=== PATIENT | female | born 1980 | race Caucasian/White ===

== ENCOUNTER 2019-01-24 17:39 | Emergency (ER) | payer BC, OTHER ==
--- NOTE | 2019-01-24 18:12 | ED Physician Documentation ---
PD HPI LOWER EXT INJURY - Stated complaint Stated Complaint: ANKLE INJURY - Chief complaint Chief Complaint: Ext Problem - History obtained from History obtained from: Patient - History of Present Illness PD HPI LOW EXT INJURY LOCATION: Left, Ankle Type of injury: Twist Where injury occurred: Home Timing - onset: How many hours ago (1) Worsened by: Moving, Palpating, Other (weight bearing) Associated symptoms: Swelling. No: Weakness, Numbness Similar symptoms before: Has not had sx before - Treatment prior to arrival Treatment prior to arrival: Ibuprophen 600 mg. - Additional information Additional information: The patient is a 38-year-old female who twisted her left ankle when she stepped into a hole in her garden about 1 hour prior to arrival. She denies any other injuries. She denies history of previous left ankle injury. Review of Systems Constitutional: denies: Fever Respiratory: denies: Dyspnea GI: denies: Nausea, Vomiting Skin: denies: Rash Musculoskeletal: reports: Joint pain (left ankle) Neurologic: denies: Focal weakness, Numbness PD PAST MEDICAL HISTORY - Past Medical History Past Medical History: Yes Endocrine/Autoimmune: None GI: GERD Psych: Anxiety - Past Surgical History Past Surgical History: No - Present Medications Home Medications: Ambulatory Orders Medication Instructions Recorded Confirmed Ranitidine HCl [Zantac] 150 mg PO BID 11/09/15 11/09/15 predniSONE [Deltasone] 40 mg PO DAILY 5 Days tablet 11/09/15 - Allergies Allergies/Adverse Reactions: Allergies Allergy/AdvReac Type Severity Reaction Status Date / Time No Known Drug Allergies Allergy Verified 01/24/19 17:59 - Social History Does the pt smoke?: No Smoking Status: Never smoker Does the pt drink ETOH?: No Does the pt have substance abuse?: No - Immunizations Immunizations are current?: Yes Immunizations: TDAP >10years/unknown PD ED PE NORMAL - Vitals Vital signs reviewed: Yes (Systolic hypertension.) - General General: Alert and oriented X 3, Well developed/nourished - HEENT HEENT: Atraumatic - Respiratory Respiratory: No respiratory distress - Derm Derm: No rash - Extremities Extremities: Other (There is swelling and tenderness to palpation at the anterior and inferior aspect of the left lateral malleolus. There is no tenderness at the posterior aspect of the lateral malleolus, at the medial malleolus, the fifth metatarsal base, or the proximal fibula. Distal neurovascular is intact.) - Neuro Neuro: Alert and oriented X 3, No motor deficit, No sensory deficit Results - Vitals Vitals: Vital Signs - 24 hr 01/24/19 17:57 Temperature 36 C L Heart Rate 85 Respiratory 16 Rate Blood Pressure 165/70 H O2 Saturation 99 Oxygen O2 Source Room air - Rads (name of study) left ankle Radiology: Prelim report reviewed, EMP read contemporaneously, See rad report (No acute bony abnormality identified.) PD MEDICAL DECISION MAKING - ED course Complexity details: reviewed results, re-evaluated patient, considered d ifferential, d/w patient, d/w family ED course: The patient's presentation is most consistent with acute ankle sprain. There is no evidence of fracture or dislocation seen on x-ray examination. Treatment in the emergency department included administration of ankle air splint. The patient has her own crutches. Ibuprofen, 800 mg, was administered orally. I discussed with her the expected course of injury, symptomatic treatment and outpatient follow-up, as well as potentially worrisome signs or symptoms that should prompt reevaluation in the emergency department. Departure - Departure Disposition: 01 Home, Self Care Clinical Impression: Left ankle sprain Qualifiers: Encounter type: initial encounter Involved ligament of ankle: anterior talofibular ligament Qualified Code(s): S93.492A - Sprain of other ligament of left ankle, initial encounter Condition: Stable Instructions: ED Sprain Ankle W X Ray Follow-Up: Samir French MD [Provider Admit Priv/Credential] - Comments: Keep your injured leg elevated as much of the time as possible. Apply ice pack to the injured area intermittently for the next 3 days. You can use ibuprofen, up to 800 mg 3 times daily for its anti-inflammatory effect. Let pain be your guide to activity level. Follow up with your primary physician within 2 weeks if not starting to improve. Call to schedule a follow-up appointment. Return to the emergency department if you develop markedly increasing pain, or otherwise worsening symptoms. Forms: Activity restrictions
--- NOTE | 2019-01-24 19:13 | XRAY Report ---
Reason: left ankle injury Procedure Date: 01/24/2019 Accession Number: [id number] / [id number] Procedure: XR - Ankle 3 View LT CPT Code: FULL RESULT: EXAM: LEFT ANKLE RADIOGRAPHY EXAM DATE: 01/24/2019 06:42 PM. CLINICAL HISTORY: Fall. Left ankle injury. COMPARISON: None. TECHNIQUE: 3 views. FINDINGS: Bones: No traumatic or destructive bone abnormalities. Posterior calcaneal enthesophyte noted. Joints: Normal. No effusion. No subluxations. The ankle mortise is normally aligned. Soft Tissues: Unremarkable. IMPRESSION: No acute bony abnormality identified. RADIA
[2019-01-24 19:22] VITALS: BP 152/91
== END 2019-01-24 19:10 | disposition home or self-care (01) ==
LOC: ED 17:39
DX: S93.492A Sprain of other ligament of left ankle, initial encounter (principal); X50.9XXA Other and unspecified overexertion or strenuous movements or postures, initial encounter; Y93.89 Activity, other specified; Y92.007 Garden or yard of unspecified non-institutional (private) residence as the place of occurrence of the external cause
CPT/HCPCS: 99282; 99283

== ENCOUNTER 2021-06-09 11:26 | Emergency (ER) | payer BC ==
--- NOTE | 2021-06-09 12:10 | ED Physician Documentation ---
History of Present Illness - Stated complaint Stated Complaint: C+ - Chief complaint Chief Complaint: General - Additonal information Additional information: 41-year-old female presents the emergency department for evaluation of cough congestion feeling of a racing heart and shortness of air as well as back pain in the setting of recently diagnosed COVID-19 infection. She is unvaccinated and had recently traveled to [place] with her . He is also COVID-19 positive but is vaccinated. Patient began having symptoms about 3 days ago. She confirmed her positivity last night. She states that she felt like she was doing okay and wonders if stress or worry got the best of her because she began feeling anxious and short of air this morning. She denies any history of hypertension, diabetes, asthma or COPD. She is a non-smoker. Review of Systems Constitutional: denies: Fever, Chills Eyes: reports: Reviewed and negative Ears: reports: Reviewed and negative Nose: reports: Rhinorrhea / runny nose, Congestion Throat: reports: Reviewed and negative Respiratory: reports: Dyspnea, Cough. denies: Hemoptysis, Wheezing GI: denies: Abdominal Pain, Nausea, Vomiting : denies: Dysuria, Frequency, Hesitancy Skin: denies: Rash, Lesions Musculoskeletal: reports: Reviewed and negative Neurologic: reports: Reviewed and negative Psychiatric: reports: Reviewed and negative PD PAST MEDICAL HISTORY - Past Medical History Past Medical History: Yes Endocrine/Autoimmune: None GI: GERD Psych: Anxiety - Past Surgical History Past Surgical History: No - Present Medications Home Medications: Ambulatory Orders Medication Instructions Recorded Confirmed predniSONE [Deltasone] 40 mg PO DAILY 5 Days tablet 11/09/15 raNITIdine HCl [Zantac] 150 mg PO BID 11/09/15 11/09/15 - Allergies Allergies/Adverse Reactions: Allergies Allergy/AdvReac Type Severity Reaction Status Date / Time No Known Drug Allergies Allergy Verified 06/09/21 11:44 - Social History Does the pt smoke?: No Smoking Status: Never smoker Does the pt drink ETOH?: No Does the pt have substance abuse?: No - Immunizations Immunizations are current?: Yes Immunizations: TDAP >10years/unknown PD ED PE NORMAL - General General: Alert and oriented X 3, No acute distress - HEENT HEENT: PERRL - Neck Neck: Supple, no meningeal sign - Cardiac Cardiac: RRR, No murmur - Respiratory Respiratory: Clear bilaterally - Abdomen Abdomen: Normal bowel sounds, Soft, Non tender, Non distended - Back Back: No CVA TTP, No spinal TTP - Derm Derm: Normal color, Warm and dry, No rash - Extremities Extremities: No deformity - Neuro Neuro: Alert and oriented X 3, endodontist 2-12 intact Eye Opening: Spontaneous Motor: Localizes to Pain Results - Vitals Vitals: Vital Signs - 24 hr 06/09/21 11:39 Temperature 36.7 C Heart Rate 95 Respiratory 14 Rate Blood Pressure 115/86 H O2 Saturation 100 Oxygen O2 Source Room air - Labs Labs: Laboratory Tests 06/09/21 06/09/21 12:22 12:22 WBC 2.9 L RBC 4.48 Hgb 9.0 L Hct 31.5 L MCV 70.3 L MCH 20.1 L MCHC 28.6 L RDW 17.4 H Plt Count 223 MPV 8.9 Neut # (Auto) 1.9 Lymph # (Auto) 0.4 L Victoria # (Auto) 0.5 Eos # (Auto) 0.0 Baso # (Auto) 0.0 Absolute Nucleated RBC 0.00 Nucleated RBC % 0.0 Manual Slide Review Indicated Platelet Estimate NORMAL (130-450,000) Platelet Morphology NORMAL APPEARANCE RBC Morph Micro Appear 1+ HYPOCHROMASIA Sodium 138 Potassium 3.5 Chloride 104 Carbon Dioxide 25 Anion Gap 9.0 BUN 19 Creatinine 0.9 Estimated GFR (MDRD) 69 L Glucose 141 H Calcium 8.5 Total Bilirubin 0.5 AST 33 ALT 31 Alkaline Phosphatase 48 Total Protein 7.1 Albumin 3.9 Globulin 3.2 Albumin/Globulin Ratio 1.2 Lipase 24 - Rads (name of study) CXR Radiology: Final report received (No acute cardiopulmonary process) PD MEDICAL DECISION MAKING - ED course Complexity details: reviewed results, re-evaluated patient, d/w patient, d/w family ED course: 41-year-old female who is COVID-19 positive and has had symptoms for the last 3 days presents the ER for cough congestion shortness of air and right-sided back pain. She would like Regeneron monoclonal antibody and does meet the FDA requirements. She does not need to be admitted to the hospital for her COVID-19 infection. She has not hypoxemic on room air. Her cardiopulmonary auscultation is unremarkable. Her vital signs are essentially normal. Patient is evaluated after her Regeneron infusion and reports that she is feeling better and less anxious. We discussed the unremarkable chest x-ray. We did discuss her moderate anemia. She does endorse heavy periods. I have encouraged her to follow-up with her primary care doctor. She may benefit from iron supplementation as well as stool guaiac testing. At this time she is stable for discharge home. We discussed the need to continue to quarantine for at least 10 days as well as discussed emergent return precautions for concerns of worsening infection. Departure - Departure Disposition: Home, Self Care Clinical Impression: COVID-19 virus infection Anemia Qualifiers: Anemia type: unspecified type Qualified Code(s): D64.9 - Anemia, unspecified Condition: Stable Record reviewed to determine appropriate education?: Yes Comments: [place] I hope that you and your family are on the mend soon. You did receive the monoclonal antibody or Regeneron today. At this time your chest x-ray is essentially unremarkable. There are no findings consistent with pneumonia. As we discussed you do have a moderately low white blood cell count but we often see this with COVID-19 infection. The only other worrisome can finding on your lab work was a hemoglobin of 9. I encourage you to discuss this with your primary care provider. You may want to discuss the length and flow of your periods as well as discuss whether stool guaiac testing is indicated at this time. Please continue to quarantine at home with your family. Return to the ER for severe or worsening respiratory distress, if your oxygen levels at home are less than 90%. Or you develop severe chest pain or shortness of air.
[2021-06-09 12:27] LABS: BASOPHILS % (AUTO) 0.3 %; EOSINOPHILS % (AUTO) 1.4 %; HCT - HEMATOCRIT 31.5 % (37.0-47.0); LYMPHOCYTES # (AUTO) 0.4 10^3/uL (1.5-3.5); LYMPHOCYTES % (AUTO) 15.2 %; MEAN CORPUSCULAR HEMOGLOBIN 20.1 pg (27.0-31.0); MEAN CORPUSCULAR HGB CONC 28.6 g/dL (32.0-36.0); MEAN CORPUSCULAR VOLUME 70.3 fL (81.0-99.0); MEAN PLATELET VOLUME 8.9 fL (7.9-10.8); MONOCYTES # (AUTO) 0.5 10^3/uL (0.0-1.0); MONOCYTES % (AUTO) 15.9 %; NEUTROPHILS # (AUTO) 1.9 10^3/uL (1.5-6.6); NEUTROPHILS % (AUTO) 66.9 %; PLT - PLATELET COUNT 223 10^3/uL (130-450); RED BLOOD COUNT 4.48 10^6/uL (4.20-5.40); RED CELL DISTRIBUTION WIDTH 17.4 % (12.0-15.0); WHITE BLOOD COUNT 2.9 x10^3/uL (4.8-10.8)
--- NOTE | 2021-06-09 12:30 | XRAY Report ---
PROCEDURE: Chest 1 View X-Ray INDICATIONS: Covid 19 + TECHNIQUE: One view of the chest was acquired. COMPARISON: 11/09/2015 FINDINGS: Surgical changes and devices: None. Lungs and pleura: No pleural effusions or pneumothorax. Lungs are clear. Mediastinum: Mediastinal contours appear normal. Heart size is normal. Bones and chest wall: No suspicious bony lesions. Overlying soft tissues appear unremarkable. IMPRESSION: No acute cardiopulmonary disease process. Reviewed by: Kary Lee MD, PhD on 06/09/2021 12:29 PM PDT Approved by: Kary Lee MD, PhD on 06/09/2021 12:29 PM PDT Station ID: [id number]
[2021-06-09 12:31] LABS: SLIDE REVIEW? Indicated
[2021-06-09 12:41] LABS: ALBUMIN 3.9 g/dL (3.2-5.5); ALBUMIN/GLOBULIN RATIO 1.2 (1.0-2.2); BILIRUBIN,TOTAL 0.5 mg/dL (0.2-1.0); CALCIUM 8.5 mg/dL (8.5-10.3); CREATININE 0.9 mg/dL (0.4-1.0); POTASSIUM 3.5 mmol/L (3.5-5.0); TOTAL PROTEIN 7.1 g/dL (6.7-8.2)
[2021-06-09 12:46] LABS: PLATELET ESTIMATE, MANUAL NORMAL (130-450,000) (NORMAL); PLATELET MORPHOLOGY NORMAL APPEARANCE (NORMAL); RBC MORPHOLOGY (MULTIPLE) 1+ HYPOCHROMASIA (NORMAL)
[2021-06-09] MEDS ORDERED: CASIRIVIMAB/IMDEVIMAB 10 ML in SODIUM CHLORIDE 0.9% 50 ML IV ONE (13:00)
[2021-06-09 13:51] VITALS: BP 118/84
== END 2021-06-09 13:59 | disposition home or self-care (01) ==
LOC: ED 11:26
DX: U07.1 COVID-19 (principal); D64.9 Anemia, unspecified
CPT/HCPCS: 36415; 71045; 80053; 83690; 85025; 99284; J7040; M0243; Q0244

== ENCOUNTER 2021-09-15 08:00 | Outpatient (CLI) | payer BC ==
[2021-09-15 12:28] LABS: BASOPHILS % (AUTO) 0.3 %; EOSINOPHILS # (AUTO) 0.2 10^3/uL (0.0-0.7); HCT - HEMATOCRIT 36.5 % (37.0-47.0); HGB - HEMOGLOBIN 10.9 g/dL (12.0-16.0); LYMPHOCYTES % (AUTO) 27.4 %; MEAN CORPUSCULAR HEMOGLOBIN 23.9 pg (27.0-31.0); MEAN CORPUSCULAR HGB CONC 29.9 g/dL (32.0-36.0); MEAN PLATELET VOLUME 9.8 fL (7.9-10.8); MONOCYTES # (AUTO) 0.5 10^3/uL (0.0-1.0); MONOCYTES % (AUTO) 12.5 %; NEUTROPHILS % (AUTO) 54.5 %; PLT - PLATELET COUNT 224 10^3/uL (130-450); RED BLOOD COUNT 4.56 10^6/uL (4.20-5.40); WHITE BLOOD COUNT 3.6 x10^3/uL (4.8-10.8)
[2021-09-15 12:42] LABS: % IRON SATURATION 36 % (20-50); IRON 170 ug/dL (28-170); TOTAL IRON BINDING CAPACITY 479 ug/dL (250-450); TRANSFERRIN 342 mg/dL (192-382)
[2021-09-15 12:45] LABS: FERRITIN 8.1 ng/mL (11.0-306.8)
== END 2021-09-15 23:59 | disposition home or self-care (01) ==
LOC: LAB.WCP 08:00
PROVIDERS: ATTEND Family Medicine
DX: D64.9 Anemia, unspecified (principal)
CPT/HCPCS: 36415; 82607; 82728; 83540; 84466; 85025

== ENCOUNTER 2021-11-29 15:09 | Outpatient (CLI) | payer BC ==
--- NOTE | 2021-11-29 16:59 | Ultrasound Report ---
PROCEDURE: Pelvic w/Transvaginal INDICATIONS: MEORRHAGIA TECHNIQUE: Real-time scanning was performed of the pelvic organs, with image documentation. Additional endovagi nal scanning was necessary due to incomplete visualization of the adnexal and endometrial structures by transabdominal scanning. COMPARISON: None. FINDINGS: No pathologic free abdominal or pelvic fluid. Uterus: Uterus is enlarged in size at 10.6 x 8.3 x 7.9 cm. The endometrium measures 8 mm in combine d thickness. There is fluid within the endometrial canal. Uterine echotexture appears heterogeneous. There is a 8.2 x 5.8 x 7.8 cm submucosal uterine fibroid noted in the posterior, midline uterus. Ovaries: Right ovary measures 3.2 x 2.0 x 3.0 cm. Right ovarian volume measures 10 mL. Possible righ t ovarian mass measuring 3.1 x 2.6 x 3.0 cm with posterior shadowing and no vascularity. Left ovary i s unremarkable in appearance measuring 2.8 x 2.1 x 2.6 cm with ovarian volume of 8.0 mL. IMPRESSION: 1. Prominent 8.2 cm submucosal intrauterine fibroid which may correlate with patient's history of men orrhagia. 2. Heterogeneous uterine echotexture. 3. Possible nonvascular 3.1 cm right ovarian mass with posterior shadowing. Ovaries are otherwise unr emarkable in appearance. Consider short interval follow-up pelvic ultrasound in 6-12weeks to document stability versus resolut ion; or alternatively further characterization with pelvic MRI. Reviewed by: Ike Oleary MD on 11/29/2021 4:57 PM PST Approved by: Ike Oleary MD on 11/29/2021 4:57 PM PST Station ID: [id number]
== END 2021-11-29 15:10 | disposition home or self-care (01) ==
LOC: DI 15:09
PROVIDERS: ATTEND Obstetrics & Gynecology
DX: N92.0 Excessive and frequent menstruation with regular cycle (principal); D25.0 Submucous leiomyoma of uterus; R93.89 Abnormal findings on diagnostic imaging of other specified body structures

== ENCOUNTER 2021-12-05 15:03 | Outpatient (CLI) | payer BC ==
--- NOTE | 2021-12-07 07:26 | Mammography Report ---
BILATERAL DIGITAL SCREENING MAMMOGRAM 3D/2D: 12/05/2021 CLINICAL: Family history of breast cancer. Routine screening. Baseline exam. No prior exams were available for comparison. The tissue of both breasts is heterogeneously dense. T his may lower the sensitivity of mammography. No significant masses, calcifications, or other findings are seen in either breast. IMPRESSION: NEGATIVE There is no mammographic evidence of malignancy. A 1 year screening mammogram is recommended. This exam was interpreted at Station ID: [id number]. NOTE: For mammograms, a report in lay terms will be sent to the patient. Approximately 15% of breast malignancies will not be visualized mammographically. In the management of a palpable breast mass, a negative mammogram must not discourage biopsy of a clinically suspicious lesion. Electronically Signed By: Heath jacobs/gilbert:12/06/2021 10:12:36 ACR BI-RADS Category 1: Negative 3341F PARENCHYMAL PATTERN: (D) - The breast(s) demonstrate(s) heterogeneously dense fibroglandular july hernandez. BI-RADS CATEGORY: (1) - 1 RECOMMENDATION: (ANNUAL) - Recommend routine annual screening mammography. [id number] 1 year screening LATERALITY: (B)
== END 2021-12-05 15:04 | disposition home or self-care (01) ==
LOC: DI.N 15:03
DX: Z12.31 Encounter for screening mammogram for malignant neoplasm of breast (principal); Z80.3 Family history of malignant neoplasm of breast

== ENCOUNTER 2022-01-04 10:08 | Outpatient (CLI) | payer BC ==
--- NOTE | 2022-01-04 15:04 | Ultrasound Report ---
PROCEDURE: Pelvic w/Transvaginal INDICATIONS: OVARIAN CYST TECHNIQUE: Real-time scanning was performed of the pelvic organs, with image documentation. Additional endovagi nal scanning was necessary due to incomplete visualization of the adnexal and endometrial structures by transabdominal scanning. COMPARISON: Pelvic ultrasound 11/29/2021. FINDINGS: Transabdominal scanning: Limited scanning through the kidneys shows no hydronephrosis. No pathologi c free abdominal or pelvic fluid. Endovaginal scanning: Uterus: Uterus is mildly enlarged at 10.5 x 7.5 x 7.9 cm. The uterus is anteverted with coarsened e chotexture. A posterior midline transmural fibroid measures 7.8 x 6.1 x 5.1 cm, previously measuring 8.2 x 5.8 x 7.8 cm. The endometrium measures 4 mm in combined thickness. Fluid is seen within the en dometrial canal. Ovaries: Right ovary measures 5.3 x 2.7 x 3.4 cm (25 cc). Left ovary measures 3 x 2.1 x 2.5 cm (8 cc ). A circumscribed hypoechoic hypervascular left ovarian lesion measures 4.1 x 2.2 x 3.4 cm (previous ly 3.1 x 2.6 x 3.0 cm). IMPRESSION: 1.Right ovarian cyst versus avascular mass is redemonstrated measuring 4.1 cm in maximum dimension, w hich is larger when compared to the exam from 11/29/2021 of the differences may be partially related t o measurement technique. Consider further characterization with MRI of the pelvis with and without co ntrast. 2.Uterus is mildly enlarged by a prominent 7.8 cm fibroid. 3.Small amount of nonspecific fluid within the endometrial canal. Reviewed by: Heath Schulz MD on 01/04/2022 3:03 PM PST Approved by: Heath Schulz MD on 01/04/2022 3:03 PM PST Station ID: [id number]
== END 2022-01-04 10:09 | disposition home or self-care (01) ==
LOC: DI 10:08
PROVIDERS: ATTEND Obstetrics & Gynecology
DX: N83.201 Unspecified ovarian cyst, right side (principal); D25.9 Leiomyoma of uterus, unspecified

== ENCOUNTER 2024-01-22 00:18 | Outpatient (CLI) | payer BC ==
[2024-01-22 00:53] LABS: BASOPHILS # (AUTO) 0.1 10^3/uL (0.0-0.1); BASOPHILS % (AUTO) 0.9 %; EOSINOPHILS # (AUTO) 0.3 10^3/uL (0.0-0.7); EOSINOPHILS % (AUTO) 3.4 %; HCT - HEMATOCRIT 36.2 % (37.0-47.0); HGB - HEMOGLOBIN 10.4 g/dL (12.0-16.0); LYMPHOCYTES # (AUTO) 1.8 10^3/uL (1.5-3.5); LYMPHOCYTES % (AUTO) 23.8 %; MEAN CORPUSCULAR HEMOGLOBIN 21.7 pg (27.0-31.0); MEAN CORPUSCULAR HGB CONC 28.7 g/dL (32.0-36.0); MEAN CORPUSCULAR VOLUME 75.4 fL (81.0-99.0); MEAN PLATELET VOLUME 9.4 fL (7.9-10.8); MONOCYTES # (AUTO) 0.8 10^3/uL (0.0-1.0); MONOCYTES % (AUTO) 10.6 %; NEUTROPHILS # (AUTO) 4.6 10^3/uL (1.5-6.6); NEUTROPHILS % (AUTO) 61.2 %; PLT - PLATELET COUNT 284 10^3/uL (130-450); RED CELL DISTRIBUTION WIDTH 15.4 % (12.0-15.0); WHITE BLOOD COUNT 7.6 x10^3/uL (4.8-10.8)
[2024-01-22 00:54] LABS: SLIDE REVIEW? Indicated
[2024-01-22 01:16] LABS: PLATELET ESTIMATE, MANUAL NORMAL (130-450,000) (NORMAL)
--- NOTE | 2024-01-22 10:07 | HISTORY & PHYSICAL EXAMINATION ---
History and Physical - History and Physical HPI: Patient is a 43-year-old perimenopausal female, -0-2-3 presenting today for planned hysteroscopy, myomectomy. She has abnormal uterine bleeding and recently started her OCPs and does think that her cycle is slightly less heavy than before. Given her age and risk factors, we discussed endometrial biopsy. We discussed that we could proceed with this in the office, however we also evaluate the contour of her endometrium and possibly shaved some of the large fibroid off which would not completely resolve her issue with fibroids, but could improve her bleeding profile. All other symptoms reviewed and were negative except per HPI. PMH Seasonal allergy GERD PSH No previous surgeries SH Former smoker. No alcohol or drug use. Family History Mother: Diabetes, breast cancer Father: Diabetes, colon cancer Sister: Heart disease, alcoholism Allergies No known drug allergies Medications Sprintec Meloxicam Methocarbamol Physical exam: General: Alert, oriented, no acute distress Head: Normal cephalic atraumatic Eyes: PERRLA, extraocular motions intact. Respiratory: Normal rate of respiration. No accessory muscle use, normal respiratory effort. Cardiovascular: Regular rate and rhythm Abdomen: Nontender, nondistended Extremities: Normal range of motion Neuro: Oriented x3. Normal movements Psych: Appropriate mood and affect. Normal judgment and insight Plan Abnormal uterine bleeding -Discussed risk, benefits, alternatives of planned hysteroscopy with myomectomy. -Will send results to pathology for endometrial sampling. -Plan to reassess after pathology and regulation of cycles with periods for further steps regarding her abnormal bleeding.
== END 2024-01-22 00:19 | disposition home or self-care (01) ==
LOC: LAB 00:18
PROVIDERS: ATTEND Obstetrics & Gynecology
DX: N93.9 Abnormal uterine and vaginal bleeding, unspecified (principal); D25.9 Leiomyoma of uterus, unspecified
CPT/HCPCS: 36415; 85025

== ENCOUNTER 2024-01-22 09:43 | Day surgery (SDC) | payer BC ==
[2024-01-22] MEDS: LACTATED RINGERS 1,000 ML IV ONE ×2 (09:53→14:48)
[2024-01-22 10:01] LABS: HCG UR QUAL NEGATIVE
[2024-01-22] MEDS ORDERED: LIDOCAINE 1%-EPI 1:100000 20 ML MDV ONE (13:33)
[2024-01-22] MEDS ORDERED: SILVER NITRATE APPLICATOR TOP ONE (13:33)
[2024-01-22] MEDS ORDERED: BUPIVACAINE 0.25% PF 30 ML VIAL ONE (13:33)
--- NOTE | 2024-01-22 13:35 | ANESTHESIA ---
Pre-Anesthesia VS, & Labs - Diagnosis uterine fibroids - Procedure myosure, D&C, myomectomy Vital Signs: Temp Pulse Resp BP Pulse Ox O2 Flow Rate 36.7 C 58 L 16 114/80 100 0 01/22/24 10:06 01/22/24 10:06 01/22/24 10:06 01/22/24 10:06 01/22/24 10:06 01/22/24 10:06 Height: 5 ft 4 in Weight (kg): 78 kg Body Mass Index: 29.5 BMI Classification: Overweight - NPO >8 hours - Is Patient ?: No Home Medications and Allergies Home Medications: Ambulatory Orders Famotidine [Pepcid] 20 mg PO DAILY 01/18/24 Multivitamin 1 each PO DAILY 01/18/24 Norgestimate-Ethinyl Estradiol [Sprintec 28 Day Tablet] 1 each PO DAILY 01/18/24 Famotidine [Pepcid] 20 mg PO DAILY 01/18/24 Multivitamin 1 each PO DAILY 01/18/24 Norgestimate-Ethinyl Estradiol [Sprintec 28 Day Tablet] 1 each PO DAILY 01/18/24 Allergies/Adverse Reactions: Allergies Allergy/AdvReac Type Severity Reaction Status Date / Time No Known Drug Allergies Allergy Verified 06/09/21 11:44 Anes History & Medical History - Anesthetic History Anesthesia Complications: reports: No previous complications Family history of Anesthesia Complications: Denies Family history of Malignant Hyperthermia: Denies - Medical History Cardiovascular: reports: Arrhythmia Pulmonary: reports: None Gastrointestinal: reports: GERD Urinary: reports: None Musculoskeletal: reports: None Endocrine/Autoimmune: reports: None Skin: reports: None Smoking Status: Never smoker Exam General: Alert, Oriented x3, Cooperative Dental: WNL Mouth Openin Fingerbreadth Neck Mobility: Normal Mallampati classification: II Thyromental Distance: 4-6 cm Respiratory: Lungs clear Cardiovascular: Regular rate Plan Anesthesia Type: General Consent for Procedure(s) Verified and Reviewed: Yes Code Status: Attempt Resuscitation ASA classification: 2-Mild systemic disease Is this case an emergency?: No
[2024-01-22] MEDS ORDERED: ONDANSETRON 4 MG/2 ML VIAL IVP PRN ×2 (13:46→14:36)
[2024-01-22] MEDS ORDERED: fentaNYL 100 MCG/2 ML VIAL IVP PRN (13:46)
[2024-01-22] MEDS ORDERED: ePHEDrine 50 MG/ML VIAL IVP PRN (13:46)
[2024-01-22] MEDS ORDERED: NALOXONE 0.4 MG/ML VIAL IVP PRN (13:46)
[2024-01-22] MEDS ORDERED: METOCLOPRAMIDE 10 MG/2 ML VIAL IVP PRN (13:46)
[2024-01-22] MEDS ORDERED: MORPHINE 2 MG/ML CARPUJECT IVP PRN (13:46)
[2024-01-22] MEDS ORDERED: HYDROmorphone 0.5 MG/0.5 ML SYRINGE IVP PRN (13:46)
[2024-01-22] MEDS ORDERED: ATROPINE ABBOJECT 1 MG/10 ML SYRINGE IVP PRN (13:46)
[2024-01-22] MEDS ORDERED: PROPOFOL 200 MG/20 ML VIAL IVP ONE (13:52)
[2024-01-22] MEDS ORDERED: LIDOCAINE-MPF 2% 5 ML VIAL ONE (13:52)
[2024-01-22] MEDS ORDERED: MIDAZOLAM 2 MG/2 ML VIAL ONE (13:52)
[2024-01-22] MEDS ORDERED: fentaNYL 100 MCG/2 ML VIAL ONE (13:52)
[2024-01-22] MEDS ORDERED: ONDANSETRON 4 MG/2 ML VIAL ONE (13:53)
[2024-01-22] MEDS ORDERED: DEXAMETHASONE 4 MG/ML VIAL ONE (13:53)
[2024-01-22] MEDS ORDERED: LACTATED RINGERS 1,000 ML IV SCH (14:00)
[2024-01-22] MEDS: BUPIVACAINE 0.25% PF 30 ML VIAL SUBQ ONE ×2 (14:15)
--- NOTE | 2024-01-22 14:43 | OPERATIVE REPORT ---
Operative Report - General Procedure Date: 01/22/24 Planned Procedure: Hysteroscopy with D&C and MyoSure myomectomy Pre-Op Diagnosis: Abnormal uterine bleeding, uterine fibroids Procedure Performed: Hysteroscopy with D&C and MyoSure myomectomy Post Op Diagnosis: Abnormal uterine bleeding, uterine fibroids - Procedure Note Primary Surgeon: Braxton Del Castillo MD Anesthesia Provider: Aimee Loredo CRNA Anesthesia Technique: MAC Pathology: Endometrial curettings IV Fluids (mL): 500 Estimated Blood Loss (mL): 10 Urine Output (mL): 0 (Voided before procedure) Findings: Normal-appearing endometrium. Fibroid in the lower uterine segment posterior left lateral. Complications: None - Other Other Information/Narrative: After counseling the patient, patient was taken to the procedure room and placed in dorsal lithotomy position. Hibiclens was used to clean the operative area. Time out was taken. [place] speculum was palced in the vagina and the cervix was visualized. The anterior lip the cervix was grasped with a single-tooth tenaculum. The cervix was non-stenotic and allowed the easy passage of dilators. The uterus was sounded to 10 cm. Hysteroscope was then used to hydrodilate using normal saline distention media. Hysteroscope was advanced without difficulty using hydrodistention. Cervical canal was noted to have no significant lesions. Upon entry into the internal cervical os there was noted to be Proliferative endometrium within the uterus. In the lower uterine segment and the posterior and left lateral wall, a submucosal fibroid is seen. Bilateral tubal ostia were noted. The MyoSure lite was then introduced into the hysteroscope and using gradual resection, the fibroid was h excised to the level of the surrounding endometrium. Hysteroscope was then removed. A sharp curetting was then performed in all segments of the uterus and collected on Telfa and submitted with the remainder of the specimen. Tenaculum was then removed from the cervix noted to have one site to be bleeding which was clamped with a ring forcep. After approximately 1 minute, the clamp was removed and the site was hemostatic. All instruments removed from the vagina. Patient tolerated procedure well and was taken the PACU in good condition. Fluid deficit 425.
[2024-01-22 15:16] VITALS: O2SAT 100
[2024-01-22] MEDS ORDERED: HYDROcod/ACETAM 5/325 MG TABLET ONE (15:25)
[2024-01-22] MEDS: HYDROcod/ACETAM 5/325 MG TABLET PO PRN (15:26)
[2024-01-22 15:35] VITALS: BP 110/74
--- NOTE | 2024-01-22 15:37 | ANESTHESIA POST OP EVALUATION ---
Anesthesia Post Eval - Post Anesthesia Eval Vitals: Last Vital Signs Temp 36.8 C 01/22/24 15:07 Pulse 50 L 01/22/24 15:27 Resp 16 01/22/24 15:27 BP 110/74 01/22/24 15:27 Pulse Ox 100 01/22/24 15:27 O2 Flow Rate 0 01/22/24 10:06 CV Function Including HR & BP: Stable Pain Control: Satisfactory Nausea & Vomiting: Negative Mental Status: Baseline Respiratory Status: Airway Patent Hydration Status: Satisfactory Anesthesia Complications: None
--- NOTE | 2024-01-24 14:26 | HISTORY & PHYSICAL EXAMINATION ---
History of Present Illness - History of Present Illness HPI Comment/Other: HPI: Patient is a 43-year-old -0-2-3 presented today for planned hysteroscopy and D&C. She has a history of uterine fibroids and evaluated bleeding. No changes since I saw her in clinic previously. All other symptoms reviewed and were negative except per HPI. PMH Urinary incontinence Uterine leiomyomas Ovarian cyst Anemia GERD Headaches Alopecia areata Eczema PSH None SH Denies tobacco, alcohol, drugs Family History Father: Colon cancer, diabetes Mother: Diabetes, Breast cancer Sister: Alcoholism, heart disease Allergies No known drug allergies Medications OCPs Methocarbamol Mobic Physical exam: General: Alert, oriented, no acute distress Head: Normal cephalic atraumatic Eyes: PERRLA, extraocular motions intact. Respiratory: Normal rate of respiration. No accessory muscle use, normal respiratory effort. Cardiovascular: Regular rate and rhythm Abdomen: Nontender, nondistended Extremities: Normal range of motion Neuro: Oriented x3. Normal movements Psych: Appropriate mood and affect. Normal judgment and insight Plan Plan to proceed with hysteroscopic D&C with myomectomy. Discussed the risk, benefits, alternatives to this procedure. Patient reaffirms consent and would like to proceed. History - Past Medical History Cardiovascular: reports: Arrhythmia Respiratory: reports: None Endocrine/Autoimmune: reports: None GI: reports: GERD : reports: None HEENT: reports: Chronic vision loss Psych: reports: None Musculoskeletal: reports: None Derm: reports: None MRSA Hx?: No Meds/Allgy - Home Medications Home Medications: Ambulatory Orders Medication Instructions Recorded Confirmed Famotidine [Pepcid] 20 mg PO DAILY 01/18/24 01/18/24 Multivitamin 1 each PO DAILY 01/18/24 01/18/24 Norgestimate-Ethinyl Estradiol 1 each PO DAILY 01/18/24 01/18/24 [Sprintec 28 Day Tablet] - Allergies Allergies/Adverse Reactions: Allergies Allergy/AdvReac Type Severity Reaction Status Date / Time No Known Drug Allergies Allergy Verified 06/09/21 11:44
== END 2024-01-22 09:44 | disposition home or self-care (01) ==
LOC: SDS 09:43
PROVIDERS: ATTEND Obstetrics & Gynecology
PROC: 0UB98ZZ Excision of Uterus, Via Natural or Artificial Opening Endoscopic (ICD-10-PCS; principal; 2024-01-22 11:15)
DX: N93.9 Abnormal uterine and vaginal bleeding, unspecified (principal); N25.9 Disorder resulting from impaired renal tubular function, unspecified; D25.0 Submucous leiomyoma of uterus
CPT/HCPCS: 36415; 58561; 81025; 85025; A9270; J7120